=== PATIENT | female | born 1975 | race Caucasian/White ===

== ENCOUNTER → 2023-06-24 15:03 | Outpatient (REF) | payer BC, SELFPAY | LOC: WDC 15:03 | PROVIDERS: ATTENDING PHYSICIAN Family Medicine | DX: Z12.31 Encounter for screening mammogram for malignant neoplasm of breast (principal) | CPT/HCPCS: 77063; 77067 ==

== ENCOUNTER → 2023-12-11 07:32 | Outpatient (REF) | payer BC, SELFPAY ==
[2023-12-11 08:14] LABS: % Basophils 0.8 % (0-2); % Eosinophils 3.1 % (0-6); % Immature Granulocytes 0.4 % (0-0.5); % Lymphocytes 24.7 % (20.5-51.1); % Monocytes 5.5 % (1.7-9.3); % Neutrophils 65.5 % (42.2-75.2); Absolute Eosinophils 0.2 10^3/uL (0-0.7); Absolute Lymphocytes 1.3 10^3/uL (1.2-3.4); Absolute Monocytes 0.3 10^3/uL (0.1-0.6); Absolute Neutrophils 3.4 10^3/uL (1.4-6.5); Hematocrit 35.4 % (37.0-47.0); Hemoglobin 11.6 g/dL (12.0-16.0); Mean Corp Hgb Conc. 32.8 g/dL (33.0-37.0); Mean Corpuscular Hgb 27.8 pg (27.0-31.0); Mean Corpuscular Volume 84.7 fL (81.0-99.0); Mean Platelet Volume 10.4 fL (7.4-10.4); Nucleated Red Blood Cells % 0 %; Platelet Count 226 10^3/uL (130-400); Red Blood Cell Count 4.18 10^6/uL (4.20-5.40); White Blood Cell Count 5.2 10^3/uL (4.8-10.8)
[2023-12-11 08:18] LABS: Urine Albumin Negative (Neg - Trace); Urine Bilirubin Negative (Negative); Urine Character Clear (Clear); Urine Color Yellow; Urine Glucose Negative (Negative); Urine Ketone Negative (Negative); Urine Leukocyte Negative (Negative); Urine Nitrite Negative (Negative); Urine Occult Blood Negative (Negative); Urine Specific Gravity 1.005 (<1.030); Urine Urobilinogen Negative (Neg - 1+)
[2023-12-11 08:53] LABS: ALT (SGPT) 19 U/L (0-35); AST (SGOT) 25 U/L (14-36); Albumin 4.6 g/dl (3.5-5.0); Alkaline Phosphatase 50 U/L (38-126); Blood Urea Nitrogen 15 mg/dl (7-17); Calcium 9.5 mg/dl (8.4-10.2); Carbon Dioxide 23 mmol/L (22-30); Chloride 104 mmol/L (98-107); Glucose 105 mg/dl (70-99); HDL Cholesterol 103 mg/dl; LDL Cholesterol, Calculated 83 mg/dl; Potassium 4.2 mmol/L (3.5-5.1); Sodium 140 mmol/L (135-145); Total Bilirubin 0.5 mg/dl (0.2-1.3); Total Cholesterol 196 mg/dl (50-199); Total Protein 6.7 g/dl (6.3-8.2); Triglyceride 50 mg/dl (10-149); Very Low Density Lipoprotein 10 mg/dl (0-30); eGFR > 60.00
[2023-12-11 09:29] LABS: TSH 0.37 uIU/ml (0.47-4.68)
[2023-12-11 11:03] LABS: Glycohemoglobin (HgbA1c) 5.3 % (4.0-5.6)
[2023-12-13 21:14] LABS: Hepatitis B Surface Antigen Negative (Negative)
[2023-12-13 21:31] LABS: Hepatitis B Surface Antibody Positive
== END ==
LOC: REG 07:32
PROVIDERS: ATTENDING PHYSICIAN Family Medicine
DX: R73.9 Hyperglycemia, unspecified (principal); R79.89 Other specified abnormal findings of blood chemistry; Z11.59 Encounter for screening for other viral diseases
CPT/HCPCS: 36415; 80053; 80061; 81003; 83036; 84443; 85025; 86706; 87340

== ENCOUNTER → 2024-02-10 15:25 | Outpatient (REF) | payer BC, SELFPAY ==
[2024-02-10 16:39] LABS: % Basophils 0.8 % (0-2); % Eosinophils 3.3 % (0-6); % Immature Granulocytes 0.2 % (0-0.5); % Monocytes 5.7 % (1.7-9.3); Absolute Basophils 0.1 10^3/uL (0-0.2); Absolute Eosinophils 0.2 10^3/uL (0-0.7); Absolute Lymphocytes 1.5 10^3/uL (1.2-3.4); Absolute Monocytes 0.3 10^3/uL (0.1-0.6); Absolute Neutrophils 3.9 10^3/uL (1.4-6.5); Hematocrit 33.6 % (37.0-47.0); Hemoglobin 10.7 g/dL (12.0-16.0); Mean Corp Hgb Conc. 31.8 g/dL (33.0-37.0); Mean Corpuscular Hgb 27.2 pg (27.0-31.0); Mean Corpuscular Volume 85.5 fL (81.0-99.0); Mean Platelet Volume 10.4 fL (7.4-10.4); Nucleated Red Blood Cells % 0 %; Platelet Count 253 10^3/uL (130-400); Red Blood Cell Count 3.93 10^6/uL (4.20-5.40); Red Cell Dist. Width 13.9 % (11.5-14.5); Reticulocyte Count 1.5 % (0.4-2.8)
[2024-02-10 16:51] LABS: Iron 27 ug/dl (37-170)
[2024-02-10 17:01] LABS: Percent Saturation 6 % (20-50); Total Iron Binding Capacity 444 ug/dl (265-497)
[2024-02-10 17:28] LABS: Ferritin 5.9 ng/ml (6.24-137)
[2024-02-10 17:49] LABS: Vitamin B12 751 pg/ml (239-931)
== END ==
LOC: REG 15:25
PROVIDERS: ATTENDING PHYSICIAN Family Medicine
DX: D64.9 Anemia, unspecified (principal)
CPT/HCPCS: 36415; 82607; 82728; 83540; 83550; 85025; 85045

== ENCOUNTER → 2024-06-26 15:20 | Outpatient (REF) | payer BC, SELFPAY | LOC: WDC 15:20 | PROVIDERS: ATTENDING PHYSICIAN Family Medicine | DX: Z12.31 Encounter for screening mammogram for malignant neoplasm of breast (principal) | CPT/HCPCS: 77063; 77067 ==

== ENCOUNTER → 2024-08-18 16:39 | Outpatient (REF) | payer BC, SELFPAY ==
[2024-08-18 17:33] LABS: Iron 120 ug/dl (37-170)
[2024-08-18 17:43] LABS: Percent Saturation 33 % (20-50); Total Iron Binding Capacity 357 ug/dl (265-497)
[2024-08-18 17:51] LABS: FSH 12.3 mIU/ml; Free T4 1.04 ng/dl (0.78-2.19); Luteinizing Hormone 5.57 mIU/ml
[2024-08-18 18:05] LABS: TSH 3.25 uIU/ml (0.47-4.68)
[2024-08-18 18:11] LABS: Ferritin 9.9 ng/ml (6.24-137)
== END ==
LOC: REG 16:39
PROVIDERS: ATTENDING PHYSICIAN Obstetrics & Gynecology; FAMILY PHYSICIAN Family Medicine
DX: N93.9 Abnormal uterine and vaginal bleeding, unspecified (principal); D64.9 Anemia, unspecified
CPT/HCPCS: 36415; 82728; 83001; 83002; 83540; 83550; 84439; 84443

== ENCOUNTER → 2024-08-30 16:02 | Outpatient (REF) | payer BC, SELFPAY | LOC: RAD 16:02 | PROVIDERS: ATTENDING PHYSICIAN Obstetrics & Gynecology Gynecology; FAMILY PHYSICIAN Family Medicine | DX: N93.9 Abnormal uterine and vaginal bleeding, unspecified (principal) | CPT/HCPCS: 76830; 76856 ==